=== PATIENT | male | born 1955 | race Caucasian/White ===

== ENCOUNTER 2016-12-14 23:08 | Emergency (ER) | payer BC | END 2016-12-15 01:28 | disposition home or self-care (01) | LOC: ER 23:08 | DX: N40.1 Benign prostatic hyperplasia with lower urinary tract symptoms (principal); R33.8 Other retention of urine; Z79.899 Other long term (current) drug therapy | CPT/HCPCS: 51702; 81001; 87088 ==

== ENCOUNTER 2016-12-18 06:52 | Emergency (ER) | payer BC | END 2016-12-18 07:56 | disposition home or self-care (01) | LOC: ER 06:52 | DX: N40.1 Benign prostatic hyperplasia with lower urinary tract symptoms (principal); R33.8 Other retention of urine; Z79.899 Other long term (current) drug therapy | CPT/HCPCS: 51702; 81001; 87088 ==